=== PATIENT | female | born 1995 | race Hispanic/Latino ===

== ENCOUNTER 2017-10-10 17:40 | Emergency (ER) | payer SELFPAY ==
[2017-10-10 18:18] LABS: APPEARANCE,URINE SLIGHTLY CLOUDY (CLEAR); BILIRUBIN,URINE Small (NEGATIVE); COLOR,URINE Dark Yellow (YELLOW); GLUCOSE, URINE (UA) Negative (NEGATIVE); KETONES,URINE >=80 mg/dL (NEGATIVE); LEUKOCYTE ESTERASE ,URINE Small (NEGATIVE); NITRATE,URINE Positive (NEGATIVE); OCCULT BLOOD,URINE Trace (NEGATIVE); PH,URINE 5.5 (5.0-8.0); PROTEIN,URINE Negative (NEGATIVE)
[2017-10-10 18:20] LABS: HCG,QUAL RESULT NEGATIVE (NEGATIVE)
[2017-10-10 18:28] LABS: AMORPHOUS SEDIMENT,UR Rare /LPF (None Seen); BACTERIA,URINE Moderate /HPF (None Seen); MUCUS,URINE Rare LPF (None Seen); SQUAMOUS EPITHELIAL CELL,UR Rare /LPF (0-2)
== END 2017-10-10 18:45 | disposition home or self-care (01) ==
LOC: EDH 17:40
DX: N39.0 Urinary tract infection, site not specified (principal); R00.2 Palpitations; I10 Essential (primary) hypertension
CPT/HCPCS: 81001; 81025; 93005

== ENCOUNTER 2017-11-09 17:44 | Emergency (ER) | payer SELFPAY | END 2017-11-09 18:13 | disposition home or self-care (01) | LOC: EDH 17:44 | DX: R07.9 Chest pain, unspecified (principal); I10 Essential (primary) hypertension | CPT/HCPCS: 93005 ==

== ENCOUNTER 2018-08-21 23:28 | Emergency (ER) | payer OTHER ==
[2018-08-21] MEDS ORDERED: ASPIRIN 325 MG TABLET ONE (23:54)
[2018-08-22 00:01] LABS: BASOPHILS % (AUTO) 0.5 % (0.0-5.0); EOSINOPHILS % (AUTO) 2.7 % (0.0-8.0); HEMATOCRIT 36.3 % (36-48); LYMPHOCYTES % (AUTO) 21.5 % (21.0-51.0); MEAN CORPUSCULAR HEMOGLOBIN 30.9 pg (27.0-33.0); MEAN CORPUSCULAR HGB CONC 34.3 g/dL (32.0-36.0); MEAN CORPUSCULAR VOLUME 90.1 fL (79-99); NEUTROPHILS % (AUTO) 67.3 % (40.0-77.0); PLATELET COUNT (AUTO) 224 K/uL (130-400); RED BLOOD CELL COUNT(AUTO) 4.03 MIL/uL (4.00-5.50); RED CELL DISTRIBUTION WIDTH 12.9 % (11.0-15.5); WHITE BLOOD COUNT (AUTO) 7.9 K/uL (4.8-10.8)
[2018-08-22 00:18] LABS: CREATININE 0.6 mg/dL (0.5-1.5); POTASSIUM 3.8 mmol/L (3.5-5.1)
[2018-08-22 00:28] LABS: ALBUMIN 3.5 g/dL (3.5-5.0); BILIRUBIN,TOTAL 0.3 mg/dL (0.2-1.0); TOTAL PROTEIN, SERUM 6.7 g/dL (6.0-8.3)
[2018-08-22 00:30] LABS: INR 1.01 (0.85-1.15); PARTIAL THROMBOPLASTIN TIME 31.2 SEC (26.3-35.5); PROTHROMBIN TIME 10.6 SEC (9.6-11.6)
== END 2018-08-22 01:06 | disposition home or self-care (01) ==
LOC: EDH 23:28
DX: R07.89 Other chest pain (principal); I10 Essential (primary) hypertension
CPT/HCPCS: 36415; 71045; 80053; 82550; 83874; 84484; 85025; 85378; 85610; 85730; 93005; 94761

== ENCOUNTER 2018-12-13 22:28 | Emergency (ER) | payer OTHER ==
[2018-12-13 22:51] LABS: APPEARANCE,URINE Clear (CLEAR); BILIRUBIN,URINE Negative (NEGATIVE); COLOR,URINE Yellow (YELLOW); GLUCOSE, URINE (UA) Negative (NEGATIVE); KETONES,URINE Negative (NEGATIVE); LEUKOCYTE ESTERASE ,URINE Negative (NEGATIVE); NITRATE,URINE Negative (NEGATIVE); OCCULT BLOOD,URINE Negative (NEGATIVE); PROTEIN,URINE Negative (NEGATIVE)
[2018-12-13 22:54] LABS: HCG,QUAL RESULT NEGATIVE (NEGATIVE)
[2018-12-13] MEDS ORDERED: DICYCLOMINE HCL 10 MG/ML 2ML AMP IM ONE (23:20)
[2018-12-13 23:37] LABS: BASOPHILS % (AUTO) 0.6 % (0.0-5.0); EOSINOPHILS % (AUTO) 2.3 % (0.0-8.0); HEMATOCRIT 37.6 % (36-48); LYMPHOCYTES % (AUTO) 28.5 % (21.0-51.0); MEAN CORPUSCULAR HEMOGLOBIN 30.6 pg (27.0-33.0); MEAN CORPUSCULAR HGB CONC 34.1 g/dL (32.0-36.0); MEAN CORPUSCULAR VOLUME 89.8 fL (79-99); MONOCYTES % (AUTO) 7.7 % (3.0-13.0); NEUTROPHILS % (AUTO) 60.9 % (40.0-77.0); PLATELET COUNT (AUTO) 207 K/uL (130-400); RED BLOOD CELL COUNT(AUTO) 4.19 MIL/uL (4.00-5.50); RED CELL DISTRIBUTION WIDTH 12.8 % (11.0-15.5)
[2018-12-13 23:50] LABS: CREATININE 0.7 mg/dL (0.5-1.5); POTASSIUM 3.8 mmol/L (3.5-5.1)
[2018-12-13 23:55] LABS: ALBUMIN 3.8 g/dL (3.5-5.0); BILIRUBIN,TOTAL 0.5 mg/dL (0.2-1.0); TOTAL PROTEIN, SERUM 7.6 g/dL (6.0-8.3)
== END 2018-12-14 00:49 | disposition home or self-care (01) ==
LOC: EDH 22:28
DX: R10.84 Generalized abdominal pain (principal); R11.0 Nausea; I10 Essential (primary) hypertension
CPT/HCPCS: 36415; 80053; 81003; 81025; 83690; 85025; 96372; 99283; J0500

== ENCOUNTER 2018-12-14 16:43 | Emergency (ER) | payer OTHER ==
[~2018-12-14] VITALS: Ht 165.1 cm; Wt 74.4 kg
[2018-12-14 16:59] LABS: BASOPHILS % (AUTO) 0.4 % (0.0-5.0); HEMATOCRIT 41.4 % (36-48); LYMPHOCYTES % (AUTO) 25.6 % (21.0-51.0); MEAN CORPUSCULAR HEMOGLOBIN 30.5 pg (27.0-33.0); MEAN CORPUSCULAR HGB CONC 34.1 g/dL (32.0-36.0); MEAN CORPUSCULAR VOLUME 89.4 fL (79-99); MONOCYTES % (AUTO) 7.1 % (3.0-13.0); NEUTROPHILS % (AUTO) 64.9 % (40.0-77.0); PLATELET COUNT (AUTO) 219 K/uL (130-400); RED BLOOD CELL COUNT(AUTO) 4.63 MIL/uL (4.00-5.50); RED CELL DISTRIBUTION WIDTH 12.8 % (11.0-15.5)
[2018-12-14 17:07] LABS: CREATININE 0.7 mg/dL (0.5-1.5); POTASSIUM 3.3 mmol/L (3.5-5.1)
[2018-12-14 17:13] LABS: ALBUMIN 4.1 g/dL (3.5-5.0); BILIRUBIN,TOTAL 0.6 mg/dL (0.2-1.0); TOTAL PROTEIN, SERUM 8.3 g/dL (6.0-8.3)
[2018-12-14 17:39] LABS: INR 1.02 (0.85-1.15); PARTIAL THROMBOPLASTIN TIME 31.5 SEC (26.3-35.5); PROTHROMBIN TIME 10.7 SEC (9.6-11.6)
[2018-12-14] MEDS ORDERED: POTASSIUM CHLORIDE 10% ELIXIR 20 MEQ/15 ML UDCUP ONE (17:54)
[2018-12-14 18:12] LABS: APPEARANCE,URINE Clear (CLEAR); BILIRUBIN,URINE Negative (NEGATIVE); COLOR,URINE Yellow (YELLOW); GLUCOSE, URINE (UA) Negative (NEGATIVE); KETONES,URINE Negative (NEGATIVE); LEUKOCYTE ESTERASE ,URINE Negative (NEGATIVE); NITRATE,URINE Negative (NEGATIVE); OCCULT BLOOD,URINE Negative (NEGATIVE); PH,URINE 5.5 (5.0-8.0); PROTEIN,URINE Negative (NEGATIVE)
[2018-12-14 18:17] LABS: HCG,QUAL RESULT NEGATIVE (NEGATIVE)
[2018-12-14 18:19] LABS: AMPHET/METH SCREEN,URINE NEGATIVE (NEGATIVE); BARBITURATE SCREEN, URINE NEGATIVE (NEGATIVE); BENZODIAZEPINES SCREEN,URINE NEGATIVE (NEGATIVE); CANNABINOID SCREEN,URINE NEGATIVE (NEGATIVE); COCAINE SCREEN,URINE NEGATIVE (NEGATIVE); OPIATE SCREEN,URINE NEGATIVE (NEGATIVE); PHENCYCLIDINE SCREEN,URINE NEGATIVE (NEGATIVE)
[2018-12-14] MEDS ORDERED: ASPIRIN 325 MG TABLET ONE (18:29)
== END 2018-12-14 18:51 | disposition home or self-care (01) ==
LOC: EDH 16:43
DX: R07.89 Other chest pain (principal); I10 Essential (primary) hypertension
CPT/HCPCS: 36415; 71045; 80053; 80305; 81025; 82550; 84484; 85025; 85610; 85730; 93005

== ENCOUNTER 2019-03-14 19:23 | Emergency (ER) | payer OTHER ==
[2019-03-14] MEDS ORDERED: SODIUM CHLORIDE 0.9% 1000ML 1,000 ML IV ONE (19:39)
[2019-03-14] MEDS ORDERED: ONDANSETRON HCL 4 MG/2 ML VIAL ONE (19:42)
[2019-03-14 19:48] LABS: BASOPHILS % (AUTO) 0.1 % (0.0-5.0); EOSINOPHILS % (AUTO) 1.5 % (0.0-8.0); HEMATOCRIT 38.8 % (36-48); MEAN CORPUSCULAR HEMOGLOBIN 30.3 pg (27.0-33.0); MEAN CORPUSCULAR HGB CONC 33.9 g/dL (32.0-36.0); MEAN CORPUSCULAR VOLUME 89.5 fL (79-99); MONOCYTES % (AUTO) 5.1 % (3.0-13.0); NEUTROPHILS % (AUTO) 86.3 % (40.0-77.0); PLATELET COUNT (AUTO) 207 K/uL (130-400); RED BLOOD CELL COUNT(AUTO) 4.33 MIL/uL (4.00-5.50); RED CELL DISTRIBUTION WIDTH 12.7 % (11.0-15.5); WHITE BLOOD COUNT (AUTO) 12.2 K/uL (4.8-10.8)
[2019-03-14 20:00] LABS: CREATININE 0.6 mg/dL (0.5-1.5); POTASSIUM 3.5 mmol/L (3.5-5.1)
[2019-03-14 20:05] LABS: ALBUMIN 3.6 g/dL (3.5-5.0); BILIRUBIN,TOTAL 0.4 mg/dL (0.2-1.0); TOTAL PROTEIN, SERUM 7.8 g/dL (6.0-8.3)
[2019-03-14 21:54] LABS: APPEARANCE,URINE CLEAR (CLEAR); BILIRUBIN,URINE NEGATIVE (NEGATIVE); COLOR,URINE YELLOW (YELLOW); GLUCOSE, URINE (UA) NEGATIVE (NEGATIVE); KETONES,URINE 40 mg/dL (NEGATIVE); LEUKOCYTE ESTERASE ,URINE NEGATIVE (NEGATIVE); NITRATE,URINE NEGATIVE (NEGATIVE); OCCULT BLOOD,URINE NEGATIVE (NEGATIVE); PROTEIN,URINE NEGATIVE (NEGATIVE); UROBILINOGEN,URINE 0.2 mg/dL (0.2-1.0)
== END 2019-03-14 22:27 | disposition home or self-care (01) ==
LOC: EDH 19:23
DX: O26.891 Other specified pregnancy related conditions, first trimester (principal); R10.30 Lower abdominal pain, unspecified; R19.7 Diarrhea, unspecified; R11.2 Nausea with vomiting, unspecified; O16.1 Unspecified maternal hypertension, first trimester; Z3A.09 9 weeks gestation of pregnancy
CPT/HCPCS: 36415; 76801; 80053; 81003; 83690; 84702; 85025; 96361; 96374; 99285; J2405; J7030

== ENCOUNTER 2019-03-27 23:21 | Emergency (ER) | payer OTHER ==
[2019-03-27] MEDS ORDERED: ONDANSETRON HCL 4 MG/2 ML VIAL ONE (23:34)
[2019-03-27] MEDS ORDERED: SODIUM CHLORIDE 0.9% 1000ML 1,000 ML IV ONE (23:34)
[2019-03-27 23:51] LABS: BASOPHILS % (AUTO) 0.3 % (0.0-5.0); EOSINOPHILS % (AUTO) 1.5 % (0.0-8.0); HEMATOCRIT 37.4 % (36-48); MEAN CORPUSCULAR HGB CONC 34.7 g/dL (32.0-36.0); MEAN CORPUSCULAR VOLUME 89.2 fL (79-99); MONOCYTES % (AUTO) 5.9 % (3.0-13.0); NEUTROPHILS % (AUTO) 81.3 % (40.0-77.0); PLATELET COUNT (AUTO) 239 K/uL (130-400); RED BLOOD CELL COUNT(AUTO) 4.19 MIL/uL (4.00-5.50); RED CELL DISTRIBUTION WIDTH 12.5 % (11.0-15.5)
[2019-03-27 23:56] LABS: APPEARANCE,URINE Clear (CLEAR); BILIRUBIN,URINE Negative (NEGATIVE); COLOR,URINE Dark Yellow (YELLOW); GLUCOSE, URINE (UA) Negative (NEGATIVE); KETONES,URINE 40 mg/dL (NEGATIVE); LEUKOCYTE ESTERASE ,URINE Trace (NEGATIVE); NITRATE,URINE Negative (NEGATIVE); OCCULT BLOOD,URINE Negative (NEGATIVE); PH,URINE 5.5 (5.0-8.0); PROTEIN,URINE POS 1+ mg/dL (NEGATIVE)
[2019-03-27 23:57] LABS: CREATININE 0.5 mg/dL (0.5-1.5); POTASSIUM 3.5 mmol/L (3.5-5.1)
[2019-03-28 00:10] LABS: BACTERIA,URINE None Seen /HPF (None Seen); MUCUS,URINE Moderate LPF (None Seen); RBC,URINE None Seen /HPF (0-1); SQUAMOUS EPITHELIAL CELL,UR Rare /HPF (0-2); WBC,URINE 0-1 /HPF (0-1)
== END 2019-03-28 00:44 | disposition home or self-care (01) ==
LOC: EDH 23:21
DX: O21.9 Vomiting of pregnancy, unspecified (principal); O16.1 Unspecified maternal hypertension, first trimester; Z3A.10 10 weeks gestation of pregnancy
CPT/HCPCS: 36415; 80048; 81001; 85025; 87804 ×2; 96361; 96374; 99284; J2405; J7030

== ENCOUNTER 2019-07-14 20:15 | Observation (INO) | payer OTHER ==
[~2019-07-14] VITALS: Ht 162.6 cm; Wt 81.2 kg
[2019-07-14 20:43] LABS: APPEARANCE,URINE Clear (CLEAR); BILIRUBIN,URINE Negative (NEGATIVE); COLOR,URINE Yellow (YELLOW); GLUCOSE, URINE (UA) Negative (NEGATIVE); KETONES,URINE Negative (NEGATIVE); LEUKOCYTE ESTERASE ,URINE Negative (NEGATIVE); NITRATE,URINE Negative (NEGATIVE); OCCULT BLOOD,URINE Negative (NEGATIVE); PROTEIN,URINE Negative (NEGATIVE)
[2019-07-14 20:55] LABS: AMPHET/METH SCREEN,URINE NEGATIVE (NEGATIVE); BARBITURATE SCREEN, URINE NEGATIVE (NEGATIVE); BENZODIAZEPINES SCREEN,URINE NEGATIVE (NEGATIVE); CANNABINOID SCREEN,URINE NEGATIVE (NEGATIVE); COCAINE SCREEN,URINE NEGATIVE (NEGATIVE); OPIATE SCREEN,URINE NEGATIVE (NEGATIVE); PHENCYCLIDINE SCREEN,URINE NEGATIVE (NEGATIVE)
== END 2019-07-14 21:30 | disposition home or self-care (01) ==
LOC: EDH 20:15 → LDH 20:16
PROVIDERS: ADMIT Obstetrics & Gynecology; ATTEND Obstetrics & Gynecology
DX: O62.9 Abnormality of forces of labor, unspecified (principal); O10.912 Unspecified pre-existing hypertension complicating pregnancy, second trimester; Z3A.26 26 weeks gestation of pregnancy; Z79.899 Other long term (current) drug therapy
CPT/HCPCS: 80305; 81003; 99284; G0378

== ENCOUNTER 2019-08-10 18:29 | Observation (INO) | payer OTHER ==
[~2019-08-10] VITALS: Ht 162.6 cm; Wt 80.7 kg
[2019-08-10 20:12] LABS: APPEARANCE,URINE Clear (CLEAR); BILIRUBIN,URINE Negative (NEGATIVE); COLOR,URINE Yellow (YELLOW); GLUCOSE, URINE (UA) Negative (NEGATIVE); KETONES,URINE Negative (NEGATIVE); LEUKOCYTE ESTERASE ,URINE Negative (NEGATIVE); NITRATE,URINE Negative (NEGATIVE); OCCULT BLOOD,URINE Negative (NEGATIVE); PH,URINE 6.5 (5.0-8.0); PROTEIN,URINE Negative (NEGATIVE)
== END 2019-08-10 20:40 | disposition home or self-care (01) ==
LOC: EDH 18:29 → LDH 18:52
PROVIDERS: ADMIT Obstetrics & Gynecology; ATTEND Obstetrics & Gynecology
DX: O26.893 Other specified pregnancy related conditions, third trimester (principal); R10.9 Unspecified abdominal pain; O99.89 Other specified diseases and conditions complicating pregnancy, childbirth and the puerperium; M54.9 Dorsalgia, unspecified; O16.3 Unspecified maternal hypertension, third trimester; O99.343 Other mental disorders complicating pregnancy, third trimester; F43.9 Reaction to severe stress, unspecified; Z3A.30 30 weeks gestation of pregnancy
CPT/HCPCS: 81003; 99284; G0378 ×2

== ENCOUNTER 2019-09-12 02:40 | Observation (INO) | payer MEDICAID, OTHER ==
[~2019-09-12] VITALS: Ht 160 cm; Wt 86.2 kg
[2019-09-12 02:58] VITALS: BP 137/84
[2019-09-12] MEDS ORDERED: LABE100T5 PO (03:00)
[2019-09-12] MEDS ORDERED: PREN1TAB80 PO (03:00)
[2019-09-12 03:19] LABS: APPEARANCE,URINE Clear (CLEAR); BILIRUBIN,URINE Negative (NEGATIVE); COLOR,URINE Yellow (YELLOW); GLUCOSE, URINE (UA) Negative (NEGATIVE); KETONES,URINE Negative (NEGATIVE); LEUKOCYTE ESTERASE ,URINE Negative (NEGATIVE); NITRATE,URINE Negative (NEGATIVE); OCCULT BLOOD,URINE Moderate (NEGATIVE); PROTEIN,URINE Negative (NEGATIVE)
[2019-09-12] MEDS ORDERED: LACTATED RINGERS 1000ML IV PRN (03:30)
[2019-09-12 03:42] LABS: BACTERIA,URINE None Seen /HPF (None Seen); MUCUS,URINE Few LPF (None Seen); RBC,URINE 0-1 /HPF (0-1); SQUAMOUS EPITHELIAL CELL,UR Few /HPF (0-2); WBC,URINE None Seen /HPF (0-1)
[2019-09-12 03:48] LABS: AMPHET/METH SCREEN,URINE NEGATIVE (NEGATIVE); BARBITURATE SCREEN, URINE NEGATIVE (NEGATIVE); BENZODIAZEPINES SCREEN,URINE NEGATIVE (NEGATIVE); CANNABINOID SCREEN,URINE NEGATIVE (NEGATIVE); COCAINE SCREEN,URINE NEGATIVE (NEGATIVE); OPIATE SCREEN,URINE NEGATIVE (NEGATIVE); PHENCYCLIDINE SCREEN,URINE NEGATIVE (NEGATIVE)
[2019-09-12] MEDS ORDERED: LACTATED RINGERS 1000ML 1,000 ML IV SCH (04:45)
== END 2019-09-12 09:30 | disposition home or self-care (01) ==
LOC: EDH 02:40 → LDH 02:41
PROVIDERS: ADMIT Obstetrics & Gynecology; ATTEND Obstetrics & Gynecology
DX: O46.93 Antepartum hemorrhage, unspecified, third trimester (principal); O26.893 Other specified pregnancy related conditions, third trimester; R10.2 Pelvic and perineal pain; O16.3 Unspecified maternal hypertension, third trimester; Z79.899 Other long term (current) drug therapy; Z3A.35 35 weeks gestation of pregnancy
CPT/HCPCS: 80305; 81001; 99284; G0378 ×7; J7120; 96360; 96361

== ENCOUNTER 2019-09-26 21:51 | Inpatient (IN) | payer MEDICAID, OTHER ==
[~2019-09-26] VITALS: Ht 162.6 cm; Wt 88.9 kg
[~2019-09-26 21:51] MED LIST: LABE100T5 PO; PREN1TAB80 PO
[2019-09-26] MEDS ORDERED: OXYTOCIN-LR 20 UNITS/1000 ML 1,000 ML IV SCH (22:30)
[2019-09-26 22:56] LABS: APPEARANCE,URINE Clear (CLEAR); BILIRUBIN,URINE Negative (NEGATIVE); COLOR,URINE Yellow (YELLOW); GLUCOSE, URINE (UA) Negative (NEGATIVE); KETONES,URINE Negative (NEGATIVE); LEUKOCYTE ESTERASE ,URINE Trace (NEGATIVE); NITRATE,URINE Negative (NEGATIVE); OCCULT BLOOD,URINE Negative (NEGATIVE); PROTEIN,URINE Negative (NEGATIVE)
[2019-09-26 23:05] LABS: AMPHET/METH SCREEN,URINE NEGATIVE (NEGATIVE); BARBITURATE SCREEN, URINE NEGATIVE (NEGATIVE); BENZODIAZEPINES SCREEN,URINE NEGATIVE (NEGATIVE); CANNABINOID SCREEN,URINE NEGATIVE (NEGATIVE); COCAINE SCREEN,URINE NEGATIVE (NEGATIVE); OPIATE SCREEN,URINE NEGATIVE (NEGATIVE); PHENCYCLIDINE SCREEN,URINE NEGATIVE (NEGATIVE)
[2019-09-26 23:14] LABS: HEMATOCRIT 31.9 % (36-48); MEAN CORPUSCULAR HEMOGLOBIN 31.4 pg (27.0-33.0); MEAN CORPUSCULAR HGB CONC 33.9 g/dL (32.0-36.0); MEAN CORPUSCULAR VOLUME 92.7 fL (79-99); PLATELET COUNT (AUTO) 208 K/uL (130-400); RED BLOOD CELL COUNT(AUTO) 3.44 MIL/uL (4.00-5.50); RED CELL DISTRIBUTION WIDTH 13.5 % (11.0-15.5); WHITE BLOOD COUNT (AUTO) 10.5 K/uL (4.8-10.8)
[2019-09-26 23:32] LABS: BACTERIA,URINE Few /HPF (None Seen); MUCUS,URINE Rare LPF (None Seen); RBC,URINE 0-1 /HPF (0-1)
[2019-09-27] MEDS ORDERED: LACTATED RINGERS 500 ML 500 ML IV PRN
[2019-09-27] MEDS ORDERED: NALOXONE HCL 0.4 MG/1 ML ML IV PRN
[2019-09-27] MEDS ORDERED: MEPERIDINE-PF 50 MG/ML SYG IVP PRN
[2019-09-27] MEDS ORDERED: EPHEDRINE SULFATE 50 MG/ML AMPULE IVP PRN
[2019-09-27] MEDS ORDERED: ROPIVACAINE 0.2% 100ML VIAL 100 ML EP SCH
[2019-09-27] MEDS ORDERED: PROMETHAZINE HCL 25 MG/ML 1ML AMPULE IM PRN
[2019-09-27] MEDS ORDERED: OXYTOCIN 10 USP UNITS/ML 20 UNIT in LACTATED RINGERS 1000ML 1,000 ML IV SCH (02:15)
[2019-09-27] MEDS: LACTATED RINGERS 1000ML 1,000 ML IV PRN (05:19)
[2019-09-27 07:57] LABS: RAPID PLASMA REAGIN NONREACTIVE (NONREACTIVE)
[2019-09-27] MEDS ORDERED: DINOPROSTONE 10 MG VAGINAL SUPP VG SCH ×2 (16:00)
[2019-09-28] MEDS ORDERED: LACTATED RINGERS 1000ML 1,000 ML IV SCH (04:45)
[2019-09-28] MEDS ORDERED: OXYTOCIN-LR 20 UNITS/1000 ML 1,000 ML IV ONE ×2 (05:26→19:45)
[2019-09-28] MEDS ORDERED: DINOPROSTONE 10 MG VAGINAL SUPP VG SCH (14:30)
[2019-09-28] MEDS ORDERED: MISOPROSTOL 100 MCG TABLET VG SCH (18:00)
[2019-09-28] MEDS ORDERED: OXYTOCIN-LR 20 UNITS/1000 ML 1,000 ML IV SCH (20:00)
[2019-09-28] MEDS ORDERED: METHYLERGONOVINE MALEATE 0.2 MG/1 ML ML ONE (20:03)
[2019-09-28] MEDS ORDERED: CARBOPROST TROMETHAMINE 250 MCG/ML AMP IM ONE (20:03)
[2019-09-28] MEDS ORDERED: MISOPROSTOL 200 MCG TABLET ONE (20:04)
[2019-09-28] MEDS: LACTATED RINGERS 1000ML 1,000 ML IV PRN ×2 (20:26→22:52)
[2019-09-28] MEDS ORDERED: METHYLERGONOVINE MALEATE 0.2 MG/1 ML ML IM SCH (21:00)
[2019-09-28] MEDS ORDERED: MISOPROSTOL 200 MCG TABLET VG PRN (21:00)
[2019-09-28] MEDS ORDERED: CARBOPROST TROMETHAMINE 250 MCG/ML AMP IM PRN (21:00)
[2019-09-28] MEDS ORDERED: METHYLERGONOVINE MALEATE 0.2 MG/1 ML ML IM PRN (21:15)
[2019-09-28] MEDS ORDERED: BENZOCAINE/LANOLIN/ALOE VERA 60 ML AEROSOL TP PRN (23:45)
[2019-09-28] MEDS ORDERED: ACETAMINOPHEN 325 MG TAB PO PRN (23:45)
[2019-09-28] MEDS ORDERED: LANOLIN 30GM OINTMENT TP PRN (23:45)
[2019-09-28] MEDS ORDERED: MEASLES/MUMPS/RUBELLA VACCINE, LIVE 0.5 ML/VIAL SQ PRN (23:45)
[2019-09-28] MEDS ORDERED: WITCH HAZEL 1 PAD TP PRN (23:45)
[2019-09-28] MEDS ORDERED: DIPH,PERTUSS(ACELL),TET VAC/PF 0.5 ML VIAL IM PRN (23:45)
[2019-09-29] VITALS (7 sets, daily range): BP systolic 114–128; BP diastolic 65–88
[2019-09-29] MEDS: IBUPROFEN 600 MG TABLET PO PRN ×3 (02:20→16:41)
[2019-09-29 07:05] LABS: HEMATOCRIT 33.2 % (36-48); MEAN CORPUSCULAR HEMOGLOBIN 30.7 pg (27.0-33.0); MEAN CORPUSCULAR HGB CONC 33.7 g/dL (32.0-36.0); PLATELET COUNT (AUTO) 191 K/uL (130-400); RED BLOOD CELL COUNT(AUTO) 3.65 MIL/uL (4.00-5.50); RED CELL DISTRIBUTION WIDTH 13.2 % (11.0-15.5); WHITE BLOOD COUNT (AUTO) 10.4 K/uL (4.8-10.8)
[2019-09-29] MEDS: DOCUSATE SODIUM 100 MG CAP PO SCH (09:06)
[2019-09-30 03:50] VITALS: BP 115/56
[2019-09-30 06:10] LABS: HEPATITIS Bs ANTIGEN SCREEN P Negative (Negative)
[2019-09-30] MEDS: IBUPROFEN 600 MG TABLET PO PRN (06:18)
[2019-09-30 07:32] VITALS: BP 115/68
[2019-09-30] MEDS: DOCUSATE SODIUM 100 MG CAP PO SCH (09:51)
[2019-09-30 11:33] VITALS: BP 125/76
--- NOTE | 2019-09-30 13:45 | NUR ---
PHYSICIAN ROUNDING DR. HA AT BEDSIDE TO ASSESS PATIENT. AT HOME CARE EXPLAINED TO PATIENT AND PATIENT ASKED TO FOLLOW UP WITH DR. HA IN ONE WEEK.
--- NOTE | 2019-09-30 14:20 | NUR ---
PATIENT DISCHARGE PATIENT GIVEN DISCHARGE INSTRUCTIONS AND INFORMATION ON NEW PRESCRIPTION FOR PAIN. PATIENT VERBALIZED UNDERSTANDING AND STATED SHE DID NOT HAVE ANY FURTHER QUESTIONS. IV DISCONTINUED FROM L. WRIST.
--- NOTE | 2019-09-30 14:35 | NUR ---
PATIENT DISCHARGED PATIENT TAKEN VIA WHEELCHAIR ACCOMPANIED WITH BABY TO WOMEN'S LOBBY. PATIENT TOLERATED WELL AND STATED SHE DID NOT HAVE ANY PAIN OR DISCOMFORT AT THIS TIME. PATIENT ASSISTED INTO PRIVATE VEHICLE AND BABY STRAPPED INTO REAR FACING CAR SEAT.
== END 2019-09-30 14:35 | disposition home or self-care (01) | DRG 807 ==
LOC: EDH 21:51 → OBSVTOIN 21:52 → LDH 21:52 → WSH 09-29 03:09
PROVIDERS: ADMIT Obstetrics & Gynecology; ATTEND Obstetrics & Gynecology
PROC: 10E0XZZ Delivery of Products of Conception, External Approach (ICD-10-PCS; principal; 2019-09-28)
PROC: 3E0234Z Introduction of Serum, Toxoid and Vaccine into Muscle, Percutaneous Approach (ICD-10-PCS; 2019-09-28)
DX: O10.92 Unspecified pre-existing hypertension complicating childbirth (principal); Z37.0 Single live birth; Z3A.37 37 weeks gestation of pregnancy; Z23 Encounter for immunization
CPT/HCPCS: 36415; 76805; 80305; 81001; 85027; 86592; 86701; 86850; 86900; 86901; 86922; 87340; 87390; 90715; A4314; G0378; J2210; J2590; J2795; J3490; J7120

== ENCOUNTER 2020-08-16 15:38 | Emergency (ER) | payer MEDICAID, OTHER ==
[~2020-08-16 15:38] MED LIST changes: -LABE100T5 PO
[2020-08-16 16:27] LABS: BASOPHILS % (AUTO) 0.1 % (0.0-5.0); EOSINOPHILS % (AUTO) 0.8 % (0.0-8.0); HEMATOCRIT 35.1 % (36-48); LYMPHOCYTES % (AUTO) 6.2 % (21.0-51.0); MEAN CORPUSCULAR HEMOGLOBIN 31.1 pg (27.0-33.0); MEAN CORPUSCULAR VOLUME 88.9 fL (79-99); MONOCYTES % (AUTO) 7.5 % (3.0-13.0); NEUTROPHILS % (AUTO) 85.1 % (40.0-77.0); PLATELET COUNT (AUTO) 194 K/uL (130-400); RED BLOOD CELL COUNT(AUTO) 3.95 MIL/uL (4.00-5.50); RED CELL DISTRIBUTION WIDTH 12.6 % (11.0-15.5); WHITE BLOOD COUNT (AUTO) 10.2 K/uL (4.8-10.8)
[2020-08-16] MEDS ORDERED: ONDANSETRON HCL 4 MG/2 ML VIAL ONE (16:28)
[2020-08-16] MEDS ORDERED: SODIUM CHLORIDE 0.9% 1000ML 1,000 ML IV ONE (16:28)
[2020-08-16 16:37] LABS: CREATININE 0.6 mg/dL (0.5-1.5); POTASSIUM 3.4 mmol/L (3.5-5.1)
[2020-08-16 16:43] LABS: APPEARANCE,URINE SL CLOUDY (CLEAR); BILIRUBIN,URINE MODERATE (NEGATIVE); COLOR,URINE YELLOW (YELLOW); GLUCOSE, URINE (UA) NEGATIVE (NEGATIVE); KETONES,URINE >=80 mg/dL (NEGATIVE); LEUKOCYTE ESTERASE ,URINE TRACE (NEGATIVE); NITRATE,URINE POSITIVE (NEGATIVE); OCCULT BLOOD,URINE TRACE-INTACT (NEGATIVE); PROTEIN,URINE 30 mg/dL (NEGATIVE)
[2020-08-16 16:49] LABS: BACTERIA,URINE Many /HPF (None Seen); MUCUS,URINE Many LPF (None Seen); RBC,URINE None Seen /HPF (0-1)
[2020-08-16 17:11] LABS: ALBUMIN 2.9 g/dL (3.5-5.0); BILIRUBIN,TOTAL 0.8 mg/dL (0.2-1.0); TOTAL PROTEIN, SERUM 7.4 g/dL (6.0-8.3)
[2020-08-16] MEDS ORDERED: CEFTRIAXONE SODIUM 1 GM ONE (17:32)
== END 2020-08-16 18:07 | disposition home or self-care (01) ==
LOC: EDH 15:38
DX: O21.0 Mild hyperemesis gravidarum (principal); I10 Essential (primary) hypertension; Z3A.09 9 weeks gestation of pregnancy
CPT/HCPCS: 36415; 80053; 81001; 84702; 85025; 87077; 87088; 87186; 96361; 96374; 96375; 99284; J0696; J2405; J7030

== ENCOUNTER 2021-03-28 20:47 | Emergency (ER) | payer OTHER ==
[~2021-03-28] VITALS: Ht 162.6 cm; Wt 88.0 kg
[2021-03-28] MEDS ORDERED: APAP-CODEINE 300/30MG TAB PO ONE (21:15)
[2021-03-28] MEDS ORDERED: AZITHROMYCIN 250 MG TABLET PO STA (23:41)
[2021-03-28] MEDS ORDERED: AMOXICILLIN/POTASSIUM CLAV 875-125 TABLET PO ONE (23:45)
[2021-03-28] MEDS ORDERED: CODE10LI PO (23:54)
[2021-03-28] MEDS ORDERED: AMOX-429 PO (23:54)
[2021-03-28] MEDS ORDERED: AZIT250T PO (23:54)
[2021-03-28] MEDS ORDERED: ALBU8.5H8 IH (23:54)
[2021-03-29] MEDS ORDERED: APAP-CODEINE 300/30MG TAB ONE (00:04)
[2021-03-29 00:16] VITALS: BP 122/88
== END 2021-03-29 00:17 | disposition home or self-care (01) ==
LOC: EDH 20:47
DX: U07.1 COVID-19 (principal); J12.82 Pneumonia due to coronavirus disease 2019; Z79.899 Other long term (current) drug therapy
CPT/HCPCS: 71045; 87635; 99284; C9803

== ENCOUNTER 2022-03-28 21:05 | Emergency (ER) | payer OTHER ==
[~2022-03-28] VITALS: Ht 162.6 cm; Wt 93.4 kg
[~2022-03-28 21:05] MED LIST changes: +ALBU8.5H8 IH; +AMOX-429 PO; +AZIT250T PO; +CODE10LI PO
[2022-03-28 21:45] VITALS: BP 123/73
[2022-03-28 21:47] LABS: BASOPHILS % (AUTO) 0.2 % (0.0-5.0); EOSINOPHILS % (AUTO) 0.8 % (0.0-8.0); HEMATOCRIT 36.4 % (36-48); LYMPHOCYTES % (AUTO) 11.9 % (21.0-51.0); MEAN CORPUSCULAR HGB CONC 34.6 g/dL (32.0-36.0); MEAN CORPUSCULAR VOLUME 89.4 fL (79-99); MONOCYTES % (AUTO) 2.7 % (3.0-13.0); NEUTROPHILS % (AUTO) 83.9 % (40.0-77.0); PLATELET COUNT (AUTO) 190 K/uL (130-400); RED BLOOD CELL COUNT(AUTO) 4.07 MIL/uL (4.00-5.50); RED CELL DISTRIBUTION WIDTH 13.2 % (11.0-15.5); WHITE BLOOD COUNT (AUTO) 11.1 K/uL (4.8-10.8)
[2022-03-28 21:50] LABS: APPEARANCE,URINE CLOUDY (CLEAR); BILIRUBIN,URINE NEGATIVE (NEGATIVE); COLOR,URINE YELLOW (YELLOW); GLUCOSE, URINE (UA) NEGATIVE (NEGATIVE); KETONES,URINE 15 mg/dL (NEGATIVE); LEUKOCYTE ESTERASE ,URINE SMALL (NEGATIVE); NITRATE,URINE NEGATIVE (NEGATIVE); OCCULT BLOOD,URINE LARGE (NEGATIVE); PROTEIN,URINE 100 mg/dL (NEGATIVE); UROBILINOGEN,URINE 0.2 mg/dL (0.2-1.0)
[2022-03-28 21:53] LABS: CREATININE 0.5 mg/dL (0.5-1.5); POTASSIUM 3.1 mmol/L (3.5-5.1)
[2022-03-28 21:56] LABS: WBC,URINE 26-50 /HPF (0-1)
[2022-03-28 21:57] LABS: BACTERIA,URINE Few /HPF (None Seen); MUCUS,URINE Rare LPF (None Seen); SQUAMOUS EPITHELIAL CELL,UR Rare /HPF (0-2)
[2022-03-28 21:58] LABS: ALBUMIN 2.9 g/dL (3.5-5.0); BILIRUBIN,TOTAL 0.2 mg/dL (0.2-1.0); TOTAL PROTEIN, SERUM 6.9 g/dL (6.0-8.3)
[2022-03-29] MEDS ORDERED: MACR100 PO (00:20)
== END 2022-03-29 00:43 | disposition home or self-care (01) ==
LOC: EDH 21:05
DX: O23.41 Unspecified infection of urinary tract in pregnancy, first trimester (principal); N39.0 Urinary tract infection, site not specified; Z3A.14 14 weeks gestation of pregnancy
CPT/HCPCS: 36415; 76805; 80053; 81001; 84702; 85025; 87077; 87088; 87186

== ENCOUNTER 2023-09-20 22:24 | Inpatient (IN) | payer OTHER ==
[~2023-09-20] VITALS: Ht 162.6 cm; Wt 86.2 kg
[~2023-09-20 22:24] MED LIST changes: +MACR100 PO
[2023-09-20] MEDS ORDERED: 0.9%NACL 1000ML 1,000 ML IV ONE (23:00)
[2023-09-20] MEDS ORDERED: MAG/ALUM/SIMETH 30 ML UDCUP PO ONE (23:00)
[2023-09-20] MEDS ORDERED: LIDOCAINE HCL 2% VISCOUS 15 ML UDCUP PO ONE (23:00)
[2023-09-20] MEDS ORDERED: DICYCLOMINE HCL 10 MG/5 ML ML PO ONE (23:00)
[2023-09-20] MEDS ORDERED: ONDANSETRON 4MG INJ IVP ONE (23:00)
[2023-09-20] MEDS ORDERED: FAMOTIDINE 20MG VIAL IV ONE (23:00)
[2023-09-20 23:27] LABS: BASOPHILS # (AUTO) 0.03 K/uL (0.00-0.20); BASOPHILS % (AUTO) 0.3 % (0.0-5.0); EOSINOPHILS # (AUTO) 0.16 K/uL (0.00-0.70); EOSINOPHILS % (AUTO) 1.6 % (0.0-8.0); HEMATOCRIT 43.1 % (36-48); IMMATURE GRANULOCYTE ABSOLUTE 0.05 K/uL (0-1); LYMPHOCYTES # (AUTO) 1.1 K/uL (1.0-4.8); LYMPHOCYTES % (AUTO) 10.6 % (21.0-51.0); MEAN CORPUSCULAR HEMOGLOBIN 30.3 pg (27.0-33.0); MEAN CORPUSCULAR HGB CONC 32.7 g/dL (32.0-36.0); MEAN CORPUSCULAR VOLUME 92.7 fL (79-99); MONOCYTES # (AUTO) 0.6 K/uL (0.1-1.0); MONOCYTES % (AUTO) 6.4 % (3.0-13.0); NEUTROPHILS # (AUTO) 8.1 K/uL (1.8-7.7); NEUTROPHILS % (AUTO) 80.6 % (40.0-77.0); PLATELET COUNT (AUTO) 205 K/uL (130-400); RED BLOOD CELL COUNT(AUTO) 4.65 MIL/uL (4.00-5.50); RED CELL DISTRIBUTION WIDTH 13.2 % (11.0-15.5)
[2023-09-20 23:37] LABS: CREATININE 0.8 mg/dL (0.5-1.5); POTASSIUM 3.3 mmol/L (3.5-5.1)
[2023-09-20 23:41] LABS: ALBUMIN 2.7 g/dL (3.5-5.0); BILIRUBIN,TOTAL 0.3 mg/dL (0.2-1.0); TOTAL PROTEIN, SERUM 5.6 g/dL (6.0-8.3)
[2023-09-20 23:44] LABS: APPEARANCE,URINE CLEAR (CLEAR); BILIRUBIN,URINE NEGATIVE (NEGATIVE); COLOR,URINE YELLOW (YELLOW); GLUCOSE, URINE (UA) NEGATIVE (NEGATIVE); KETONES,URINE 10 mg/dL (NEGATIVE); LEUKOCYTE ESTERASE ,URINE NEGATIVE Leu/uL (NEGATIVE); NITRATE,URINE NEGATIVE (NEGATIVE); OCCULT BLOOD,URINE NEGATIVE (NEGATIVE); PH,URINE 5.5 (5.0-8.0); PROTEIN,URINE 10 mg/dL (NEGATIVE)
[2023-09-20 23:48] LABS: HCG,QUALITATIVE URINE NEGATIVE (NEGATIVE)
[2023-09-20 23:49] LABS: ADD UA MICROSCOPIC YES
[2023-09-20 23:51] LABS: BACTERIA,URINE RARE /HPF (None Seen); MUCUS,URINE FEW LPF (None Seen); RBC,URINE 0-1 /HPF (0-1); SQUAMOUS EPITHELIAL CELL,UR RARE /HPF (0-2)
[2023-09-21] MEDS ORDERED: 0.9%NACL 1000ML 1,000 ML IV ONE (00:30)
[2023-09-21 00:48] LABS: CHOLESTEROL 109 mg/dL (<200); HDL CHOLESTEROL 46 mg/dL (35-85); LDL DIRECT 61 mg/dL (0-99); TRIGLYCERIDES 71 mg/dL (30-200)
[2023-09-21] MEDS ORDERED: ONDANSETRON 4MG INJ IV PRN (06:00)
[2023-09-21] MEDS ORDERED: POTASSIUM CHLORIDE 20MEQ/100ML 100 ML IV PRN (06:00)
[2023-09-21] MEDS ORDERED: KETOROLAC 15MG/ML VIAL (15MG/ML) IV PRN (06:00)
[2023-09-21] MEDS ORDERED: MAGNESIUM 2GM PREMIX 50ML 50 ML IV PRN (06:00)
[2023-09-21] MEDS: LACTATED RINGERS 1000ML 1,000 ML IV SCH ×3 (06:19→19:40)
[2023-09-21] MEDS: LEVOFLOXACIN 500 MG/D5W 100 ML 100 ML IV SCH (06:19)
[2023-09-21 07:14] LABS: BASOPHILS # (AUTO) 0.01 K/uL (0.00-0.20); BASOPHILS % (AUTO) 0.2 % (0.0-5.0); EOSINOPHILS # (AUTO) 0.03 K/uL (0.00-0.70); EOSINOPHILS % (AUTO) 0.5 % (0.0-8.0); HEMATOCRIT 36.8 % (36-48); IMMATURE GRANULOCYTE ABSOLUTE 0.02 K/uL (0-1); LYMPHOCYTES # (AUTO) 0.9 K/uL (1.0-4.8); LYMPHOCYTES % (AUTO) 14.4 % (21.0-51.0); MEAN CORPUSCULAR HEMOGLOBIN 30.3 pg (27.0-33.0); MEAN CORPUSCULAR HGB CONC 32.9 g/dL (32.0-36.0); MONOCYTES # (AUTO) 0.3 K/uL (0.1-1.0); MONOCYTES % (AUTO) 4.7 % (3.0-13.0); NEUTROPHILS # (AUTO) 5.1 K/uL (1.8-7.7); NEUTROPHILS % (AUTO) 79.9 % (40.0-77.0); PLATELET COUNT (AUTO) 178 K/uL (130-400); RED CELL DISTRIBUTION WIDTH 13.4 % (11.0-15.5); WHITE BLOOD COUNT (AUTO) 6.3 K/uL (4.8-10.8)
[2023-09-21 07:36] LABS: ALBUMIN 2.5 g/dL (3.5-5.0); BILIRUBIN,TOTAL 0.3 mg/dL (0.2-1.0); CREATININE 0.6 mg/dL (0.5-1.5); POTASSIUM 3.8 mmol/L (3.5-5.1); TOTAL PROTEIN, SERUM 4.8 g/dL (6.0-8.3)
[2023-09-21 07:54] LABS: HEMOGLOBIN A1C 4.5 % (4.0-6.0)
[2023-09-21] MEDS: FAMOTIDINE 20MG VIAL IV SCH ×2 (09:00→19:40)
[2023-09-21 15:30] VITALS: BP 117/67; PULSE 72; RESP 18; O2SAT 99
[2023-09-21 19:22] VITALS: BP 118/70; PULSE 74; RESP 20
[2023-09-21 19:40] VITALS: O2SAT 99
[2023-09-21 23:48] VITALS: BP 122/71; PULSE 77; RESP 18
[2023-09-22] MEDS: LACTATED RINGERS 1000ML 1,000 ML IV SCH ×2 (01:37→10:48)
[2023-09-22 04:02] VITALS: BP 108/71; PULSE 57; RESP 18
[2023-09-22 05:28] LABS: CREATININE 0.5 mg/dL (0.5-1.5); POTASSIUM 3.6 mmol/L (3.5-5.1)
[2023-09-22] MEDS: LEVOFLOXACIN 500 MG/D5W 100 ML 100 ML IV SCH (05:33)
[2023-09-22 08:00] VITALS: BP 111/60; PULSE 83; RESP 20; O2SAT 99
[2023-09-22] MEDS: FAMOTIDINE 20MG VIAL IV SCH (10:48)
[2023-09-22 12:00] VITALS: BP 116/68; PULSE 86; RESP 20
== END 2023-09-22 18:45 | disposition home or self-care (01) | DRG 438 ==
LOC: EDH 22:24 → EDHIP 22:25 → 3DH 09-21 13:55
PROVIDERS: ADMIT Hospitalist; ATTEND Hospitalist
DX: K85.90 Acute pancreatitis without necrosis or infection, unspecified (principal); E43 Unspecified severe protein-calorie malnutrition; K80.20 Calculus of gallbladder without cholecystitis without obstruction; E66.09 Other obesity due to excess calories; E87.6 Hypokalemia; I10 Essential (primary) hypertension; Z68.32 Body mass index [BMI] 32.0-32.9, adult
CPT/HCPCS: 36415; 74183; 76705; 80048; 80053; 80061; 81001; 81025; 82150; 82306; 83036; 83690; 83735; 84484; 85025; 87040; G0378; J1885; J1956; J2405; J3490; J7030; J7120; S8037

== ENCOUNTER 2024-10-09 05:11 | Emergency (ER) | payer MEDICAID ==
[~2024-10-09] VITALS: Ht 162.6 cm; Wt 98.9 kg
[2024-10-09] MEDS ORDERED: AMOX-427 PO (06:01)
--- NOTE | 2024-10-09 06:01 | ERN ---
ED Note History of Present Illness Stated Complaint: C/O TOOTHACHE TO RT BOTTOM SIDE Chief Complaint: Tooth Ache/Pain Time Seen by MD: 05:16 Allergies: Coded Allergies: No Known Allergies (Verified Allergy, Unknown, 12/14/18) Home Meds No Active Prescriptions or Reported Meds Past Medical History Dictation 28-year-old female with past medical history of 3rd trimester presents with dental pain. Patient states she has a crack in her right bottom molar and has been having worsening pain over the last few days. Patient denies difficulty breathing, drooling, nausea, vomiting diaphoresis, syncope, presyncope, productive cough Past Medical History: No Pertinent History Surgical History: None Family History: Negative Social History: Negative, Other History: Not Applicable LMP: May 02, 2024 : 6 Para: 5 Aborts: 0 Review of System Dictation See HPI Initial Vital Sign VS Vital Signs Date Time Temp Pulse Resp B/P (MAP) Pulse Ox O2 Delivery O2 Flow Rate FiO2 10/09/24 05:12 98.4 91 20 134/88 98 Room Air Physical Exam Dictation gravidad, abdomen is soft, nontender, non peritoneal, no peritonsillar abscess, no Rohith's angina, dental Tuyet to right lower molar ED Course ED Course Vital Signs Date Time Temp Pulse Resp B/P (MAP) Pulse Ox O2 Delivery O2 Flow Rate FiO2 10/09/24 05:12 98.4 91 20 134/88 98 Room Air Medical Decision Making [facility] Patient given [place] for pain. Patient states Tylenol is not working for her. We will prescribe Augmentin. Patient will follow up with dentist. Return precautions given. Invited and answered all questions prior to discharge DX & DISP Disposition: Discharge Departure Impression: Primary Impression: Pain, dental Condition: Stable Scripts Amoxicillin/Potassium Clav (Augmentin Xr 1,000-62.5 Tab) 1,000 Mg-62.5 Mg Tab.er.12h 2 TAB PO BID for 10 Days, #40 TAB 0 Refills with food Prov: BEATRIZ VELÁZQUEZ DO 10/09/24 Additional Instructions: Please follow up with dentist at next available appointment. Please continue to control pain with Tylenol. You can take 1000 mg of Tylenol up to 3 times per day Referrals: MARITA DUMONT MD (PCP) Time of Disposition: 05:59 BEATRIZ VELÁZQUEZ DO Oct 09, 2024 06:01
--- NOTE | 2024-10-09 06:26 | NUR ---
PT PLACED IN ED ROOM 19
[2024-10-09 06:28] VITALS: BP 134/87; PULSE 81; RESP 16; TEMP 98.1; O2SAT 98
[2024-10-09] MEDS: HYDROcodone/APAP 5/325 1 TAB TABLET PO ONE (06:30)
--- NOTE | 2024-10-09 07:01 | NUR ---
REPORT GIVEN TO NAMRATA EATON AT THIS TIME
== END 2024-10-09 07:06 | disposition home or self-care (01) ==
LOC: EDH 05:11
DX: K08.89 Other specified disorders of teeth and supporting structures (principal)
CPT/HCPCS: 99283